=== PATIENT | male | born 1985 | race Caucasian/White ===

== ENCOUNTER 2017-08-12 18:02 | Emergency (ER) | payer SELFPAY ==
--- NOTE | 2017-08-12 18:32 | EDPHY ---
H & P Stated Complaint: LAC TO L THUMB CUT WITH KNIFE CUTTING FENNEL Time Seen by Provider: 08/12/17 18:32 HPI/ROS: HPI: This is a 31-year-old male who presents with Chief Complaint: Left thumb laceration while cutting final Location: Left thumb Quality: Laceration Duration: Prior to arrival Signs and Symptoms: + bleeding, no radiation, no numbness, no weakness, no tingling, no incontinence, no decreased range of motion, no swelling, no pain, no fever Timing: Acute Severity: Mild Context: Patient is right-hand dominant, presents with complaints of cutting the tip of his left thumb on the medial aspect while he was cutting Fennel to make vegetables for dinner. He was using a private chef knife to cut the vegetables. He reports that he accidentally slipped and cut the tip of his left thumb. He rinsed it with soap and water and applied direct pressure for 5 min but the bleeding continued. Denies any paresthesias/weakness/decreased range of motion. Reports tetanus is up-to-date. Modifying Factors: See above Comment: ROS: see HPI Constitutional: No fever, no chills, no weight loss Eyes: No blurred vision Respiratory: No shortness of breath, no cough Cardiovascular: No chest pain Gastrointestinal: No nausea, no vomiting no diarrhea Genitourinary: No dysuria Extremities: No myalgias Neurologic: No weakness, no numbness Skin: No rashes Hematologic: No bruising, no bleeding MEDICAL/SURGICAL/SOCIAL HISTORY: Medical history: Generally healthy. Does not take any regular medications. Surgical history: Denies Social history: Never smoked. Family history noncontributory. CONSTITUTIONAL: Extremely pleasant adult white male, awake and alert, no obvious distress EXTREMITIES: 2/2 pulses, strength 5/5, left thumb 1/4 inch superficial, simple , linear laceration inferior to the nail. no deformities, no clubbing, no cyanosis or edema. NEUROLOGICAL: no focal neuro deficits. GCS 15. SKIN: Warm and dry, no erythema. no rash. Good capillary refill. Source: Patient Exam Limitations: No limitations - Personal History Current Tetanus Diphtheria and Acellular Pertussis (TDAP): Yes - Medical/Surgical History Hx Asthma: No Hx Chronic Respiratory Disease: No Hx Diabetes: No Hx Cardiac Disease: No Hx Renal Disease: No Hx Cirrhosis: No Hx Alcoholism: No Hx HIV/AIDS: No Hx Splenectomy or Spleen Trauma: No Other PMH: DENIES - Social History Smoking Status: Never smoked Constitutional: Initial Vital Signs Temperature (C) 36.8 C 08/12/17 18:07 Heart Rate 70 08/12/17 18:07 Respiratory Rate 18 08/12/17 18:07 Blood Pressure 146/80 H 08/12/17 18:07 O2 Sat (%) 99 08/12/17 18:07 O2 Delivery Mode Room Air Allergies/Adverse Reactions: No Known Allergies Allergy (Unverified 08/12/17 18:06) Home Medications: Medication Instructions Recorded NK [No Known Home Meds] 08/12/17 Medical Decision Making Procedures: Procedure: Laceration repair. Verbal consent was obtained from the patient. The 1/4 inch superficial, simple , linear laceration on the tip of the left thumb was anesthetized in the usual fashion using 2 mL of 1% lidocaine without epinephrine. The wound was irrigated , draped and explored to its base with a gloved finger. There were no deep structures involved. No tendon injury was identified. The wound was repaired with Dermabond. Good hemostasis was achieved and patient tolerated procedure well. Clean sterile dressing applied. The procedure was performed by myself. ED Course/Re-evaluation: Tetanus up-to-date. X-ray imaging not indicated. Local anesthesia provided. Cleaned with mild soap and water. Dermabond used to close superficial laceration. No signs of neurovascular compromise/tenting of skin/compartment syndrome/ extremities and joints examined above and below area of concern and are neurovascularly intact. Verbal and written wound care instructions provided to patient. This patient was seen under the supervision of my secondary supervising physician. I evaluated care for this patient independently. Differential Diagnosis: Differential diagnosis includes but is not limited to laceration, nail injury, tendon injury, nerve injury. Departure - Departure Disposition: Home, Routine, Self-Care Clinical Impression: Laceration of left thumb without complication Qualifiers: Encounter type: initial encounter Qualified Code(s): S61.012A - Laceration without foreign body of left thumb without damage to nail, initial encounter Condition: Good Instructions: Finger Laceration (ED), Skin Adhesive Care (ED) Additional Instructions: Allow the skin glue to slowly dissolve on its own. Take Tylenol 650 mg every 4 hours and/or Ibuprofen 600 mg every 8 hours with food as needed for pain. Return to the ER immediately if you experience redness, red streaks, have fevers /chills, flu like symptoms, limited range of motion, or any other symptoms that concern you. Referrals: [facility],. [Clinic] - Follow Up Only If Needed
[2017-08-12] MEDS ORDERED: SKIN ADHESIVE (DERMABOND) 1 EACH TP ONE (18:56)
[2017-08-12 19:19] VITALS: BP 137/79
== END 2017-08-12 19:16 | disposition home or self-care (01) ==
PROC: 0HQGXZZ Repair Left Hand Skin, External Approach (ICD-10-PCS; principal; 2017-08-12)
DX: S61.012A Laceration without foreign body of left thumb without damage to nail, initial encounter (principal); W26.0XXA Contact with knife, initial encounter; Y99.8 Other external cause status; Y93.G1 Activity, food preparation and clean up